=== PATIENT | female | born 1955 | race Caucasian/White ===

== ENCOUNTER 2016-07-06 09:52 | Outpatient (CLI) | payer BC ==
[2016-07-06 10:14] LABS: BASOPHILS % 0.7 (0.0-1.5); EOSINOPHILS % 1.7 % (0.0-6.8); LYMPHOCYTES # 3.1 # k/uL (0.6-4.0); MEAN CORPUSCULAR HEMOGLOBIN 30.2 pg (28.0-34.0); MONOCYTES # 0.4 # k/uL (0.0-0.9); MONOCYTES % 4.4 % (0.0-11.0); NEUTROPHILS # 4.7 # k/uL (1.4-7.7)
[2016-07-06 10:46] LABS: eGFR (African) > 60; eGFR (Non-African) > 60
--- NOTE | 2016-07-06 11:16 | Diagnostic Imaging Report ---
[facility] [address] [facility] [address] [place], [place]. [address] Report Submission Date: Jul 06, 2016 10:42:01 AM QUALITY ASSURANCE ASSISTANT Patient Study Name: MYNOR ABRAHAM Date: Jul 06, 2016 10:08:29 AM QUALITY ASSURANCE ASSISTANT Modality Type: CR Gender: F Description: ABDOMEN : 57 Institution: [facility] Physician: BRIGHT NOBLE 3 views of the abdomen History: PT STATES PALPABLE LUMP NEXT TO HER NAVEL FOR 6 MONTHS. NO PAIN. HX OF GALLBLADDER REMOVAL AND HYSTEROECTOMY Findings: No comparison studies Large amount of stool is seen throughout the colon. Bowel loop is seen superimposed on the L5 region- upper sacrum. Cholecystectomy clips are seen in the right upper abdomen. Limited correlation for radiopaque calculus due to large amount of stool Rounded 11 centimeters soft tissue opacity in the pelvis may represent a distended bladder. Multilevel degenerative changes are noted in the lumbar spine worst at L4-5 Impression: 1. A 6 cm wide bowel loop is seen superimposed in the region of the lower lumbar spine/upper sacrum. Unclear if this represents a periumbilical hernia, further evaluation with cross-sectional imaging may be considered 2. Large amount of stool throughout the colon 3. Posterior cholecystectomy. Distended bladder. 4. Extensive degenerative changes of the L4-L5 region with significant left paraspinal calcification. Comparison with prior studies/ additional imaging may be done as relevant. Electronically signed on Jul 06, 2016 10:42:01 AM QUALITY ASSURANCE ASSISTANT by: Nava DOSHI
== END 2016-07-06 09:53 ==
LOC: LAB 09:52
PROVIDERS: ATTEND Family Medicine
DX: R19.05 Periumbilic swelling, mass or lump (principal)
CPT/HCPCS: 36415; 74000; 80053; 85025

== ENCOUNTER 2016-07-07 07:28 | Outpatient (CLI) | payer BC ==
--- NOTE | 2016-07-08 07:13 | Diagnostic Imaging Report ---
[facility] [address] [facility] [address] [place], [place]. [address] Report Submission Date: Jul 08, 2016 4:20:53 AM WELDER PLASMA ARC Patient Study Name: MYNOR ABRAHAM Date: Jul 07, 2016 9:15:51 AM WELDER PLASMA ARC Modality Type: CT\SR Gender: F Description: CT ABD & PELVIS W/ CON : 57 Institution: [facility] Physician: BRIGHT NOBLE Computed tomography of the abdomen and pelvis with contrast History: Periumbilical mass Findings: Transverse abdomen and pelvis sections are obtained oral and intravenous contrast. Hepatic steatosis, cholecystectomy and a small right renal cyst are observed. The kidneys, liver, pancreas, spleen, adrenals, great vessels, and mesenteric structures are otherwise normal. Bowel loops exhibit normal caliber and wall thickness including a normal appendix. In moderate sized umbilical hernia contains omentum. The hernia neck measures 2.9 cm in transverse diameter. Minimal aortic atherosclerotic calcification is observed. Grade I L4/5 degenerative spondylolisthesis and grade II lytic and degenerative L5/S1 spondylolisthesis are observed. Coronary artery calcifications are present. Pelvic sections reveal unremarkable bowel loops and urinary bladder. Hysterectomy has been performed. No acute pelvic abnormalities are observed. Impression: 1. A moderate sized umbilical hernia contains omentum. 2. Lower lumbar spondylosis, cholecystectomy, hepatic cyst steatosis, atherosclerosis, and hysterectomy noted. Electronically signed on Jul 08, 2016 4:20:53 AM WELDER PLAS[employer] ARC by: Ryan DOSHI
== END 2016-07-07 07:30 ==
LOC: RAD 07:28
PROVIDERS: ATTEND Family Medicine
DX: K52.9 Noninfective gastroenteritis and colitis, unspecified (principal); M47.816 Spondylosis without myelopathy or radiculopathy, lumbar region; Z90.49 Acquired absence of other specified parts of digestive tract; K76.0 Fatty (change of) liver, not elsewhere classified; I25.10 Atherosclerotic heart disease of native coronary artery without angina pectoris; Z90.710 Acquired absence of both cervix and uterus
CPT/HCPCS: 74177; Q9966; A9698

== ENCOUNTER 2016-07-15 12:22 | Outpatient (CLI) | payer BC | END 2016-07-15 12:30 | LOC: OUT 12:22 | PROVIDERS: ATTEND Colon & Rectal Surgery | DX: K42.9 Umbilical hernia without obstruction or gangrene (principal) | CPT/HCPCS: 99203 ==

== ENCOUNTER 2016-07-29 07:00 | Day surgery (SDC) | payer BC ==
[2016-07-29] MEDS ORDERED: ACETAMINOPHEN 1,000 MG/100 ML INJ IV ONE (08:00)
[2016-07-29] MEDS ORDERED: ROCURONIUM BROMIDE 10 MG/ML 5ML VIAL ONE (08:00)
[2016-07-29] MEDS ORDERED: LACTATED RINGERS 1,000 ML IV.SOLN IV ONE (08:00)
[2016-07-29] MEDS ORDERED: PROPOFOL 200 MG/20 ML VIAL IV ONE (08:00)
[2016-07-29] MEDS ORDERED: DEXAMETHASONE SOD PHOS 4 MG/ML VIAL ONE (08:00)
[2016-07-29] MEDS ORDERED: MIDAZOLAM HCL 2 MG/2 ML VIAL ONE (08:00)
[2016-07-29] MEDS ORDERED: SUCCINYLCHOLINE CHLORIDE 20 MG/ML 10ML VIAL ONE (08:00)
[2016-07-29] MEDS ORDERED: SALINE FLUSH 10 ML DISP.SYRIN IVF ONE (08:00)
[2016-07-29] MEDS ORDERED: LIDOCAINE HCL/PF 2% 100 MG/5 ML VIAL IJ ONE (08:00)
[2016-07-29] MEDS ORDERED: fentaNYL CITRATE/PF 100 MCG/ 2ML AMP ONE (08:00)
[2016-07-29] MEDS ORDERED: ceFAZolin SODIUM 1 GM VIAL ONE (08:00)
[2016-07-29] MEDS ORDERED: GLYCOPYRROLATE 0.2 MG/1 ML 1 ML ONE (08:00)
[2016-07-29] MEDS ORDERED: NORMAL SALINE 1,000 ML IV.SOLN IV ONE (08:00)
[2016-07-29] MEDS ORDERED: BACITRACIN 50,000 UNIT VIAL ONE (08:00)
[2016-07-29] MEDS ORDERED: SEVOFLURANE 250 ML LIQUID IH ONE (08:00)
[2016-07-29] MEDS ORDERED: FAMOTIDINE/PF 20 MG/2 ML VIAL ONE (08:00)
[2016-07-29] MEDS ORDERED: BUPIVACAINE HCL/EPINEPHRINE/PF 0.25% VIAL IM ONE (08:00)
[2016-07-29] MEDS ORDERED: KETOROLAC TROMETHAMINE 30 MG/1ML VIAL ONE (08:00)
--- NOTE | 2016-07-29 14:59 | Operative Note ---
SURGEON: Jan Paz MD ANESTHESIA: General. ESTIMATED BLOOD LOSS: Minimal. COMPLICATIONS: None. APPARENT STATEMENT OF NECESSITY: This is a 61-year-old woman with an incisional hernia at the umbilicus who presents for repair. PREOPERATIVE DIAGNOSIS: Incisional umbilical hernia. POSTOPERATIVE DIAGNOSIS: Incisional umbilical hernia. PROCEDURE PERFORMED: Repair of hernia with mesh. DESCRIPTION OF PROCEDURE: The patient was brought to the operating room and general anesthesia was achieved. The abdomen was prepped and draped in the usual sterile fashion. A small vertical incision was made just below the umbilicus and carried to the subcutaneous tissues. She had approximately a 2.5 to 3 cm hernia defect containing omentum. The omentum was reduced. There was no other hernia defect palpated. A medium Ventralex was used to repair the hernia. It was placed beneath the mesh and secured the fascia with interrupted 0-Prolene sutures. The wound was irrigated and suctioned. There was no bleeding. The subcutaneous tissue was closed with 2-0 Vicryl and the skin with 4-0 Vicryl subcuticular sutures. Steri-Strips and a dressing was placed over the incision. The patient was awakened and extubated in the operating room and taken to the recovery room in good condition. TICO
== END 2016-07-29 07:02 ==
LOC: OPSURG 07:00
PROVIDERS: ATTEND Colon & Rectal Surgery
DX: K42.9 Umbilical hernia without obstruction or gangrene (principal)
CPT/HCPCS: 49585; J0330; J0690; J1100; J1885; J2001; J2250; J2704; J3010; J3490; J7030; J7120; C1781; S0028; S1016

== ENCOUNTER 2016-08-12 10:57 | Outpatient (CLI) | payer BC ==
--- NOTE | 2016-09-10 08:34 | OP Clinic Progress Note ---
POSTOPERATIVE NOTE: REASON FOR VISIT: Patient presents today for a postoperative visit after repair of an umbilical hernia. She is doing very well. She has no complaints today. She is tolerating a regular diet and regained bowel function. PHYSICAL EXAMINATION: On exam, her abdomen is soft, nondistended, and nontender. Her wound is clean with no evidence of infection. IMPRESSION: Status post repair of incisional umbilical hernia. PLAN: She is doing very well. Recommend continuing no heavy lifting for 2 to 3 more weeks and then return to activity as tolerated. She can return to clinic as needed. TICO
== END 2016-08-12 11:00 ==
LOC: OUT 10:57
PROVIDERS: ATTEND Colon & Rectal Surgery
DX: K43.2 Incisional hernia without obstruction or gangrene (principal)
CPT/HCPCS: 99213

== ENCOUNTER 2016-09-13 17:13 | Outpatient (CLI) | payer BC | END 2016-09-13 17:14 | LOC: LAB 17:13 | PROVIDERS: ATTEND Family Medicine | DX: C44.612 Basal cell carcinoma of skin of right upper limb, including shoulder (principal) ==

== ENCOUNTER 2017-04-26 09:18 | Outpatient (CLI) | payer BC ==
[2017-04-26 10:08] LABS: eGFR (African) > 60; eGFR (Non-African) > 60
== END 2017-04-26 09:20 ==
LOC: LAB 09:18
PROVIDERS: ATTEND Family Medicine
DX: Z00.00 Encounter for general adult medical examination without abnormal findings (principal); E55.9 Vitamin D deficiency, unspecified
CPT/HCPCS: 36415; 80053; 80061; 82306